=== PATIENT | male | born 1990 | race Caucasian/White ===

== ENCOUNTER 2022-12-07 21:24 | Day surgery (SDC) | payer BC ==
[2022-12-07] MEDS ORDERED: Sodium Chloride 0.9% 10 ML Syringe FLUSH PRN (21:37)
[2022-12-07] MEDS ORDERED: LORazepam 2 MG/ML SDV IVPUSH ONE (21:43)
[2022-12-07] MEDS ORDERED: Glucagon,Human Recombinant 1 MG Vial IVPUSH ONE (21:43)
[2022-12-07] MEDS ORDERED: Lidocaine 1% 4 ML ONE (22:57)
[2022-12-07] MEDS ORDERED: Ondansetron 4 MG/2 ML SDV ONE (22:57)
[2022-12-07] MEDS ORDERED: Midazolam 1 MG/ML 2 ML SDV ONE (22:58)
[2022-12-07] MEDS ORDERED: Propofol 200 MG/20 ML SDV ONE (22:58)
[2022-12-07] MEDS ORDERED: fentaNYL 100 MCG/2 ML SDV ONE (22:59)
[2022-12-07] MEDS ORDERED: fentaNYL 100 MCG/2 ML SDV IVPUSH PRN (23:17)
[2022-12-07] MEDS ORDERED: HYDROmorphone 0.5 MG/0.5 ML Syringe IVPUSH PRN (23:17)
[2022-12-07] MEDS ORDERED: Ondansetron 4 MG/2 ML SDV IVPUSH PRN (23:17)
[2022-12-07] MEDS ORDERED: Dexamethasone 4 MG/ML SDV ONE (23:37)
[2022-12-08] MEDS ORDERED: Lactated Ringers 1,000 ML IV SCH (00:10)
== END 2022-12-08 07:32 | disposition home or self-care (01) ==
LOC: JD.ED 21:24 → JD.SDS 22:53 → JD.MS 12-08 01:09 → JD.SDS 12-08 07:32
PROVIDERS: ATTEND Specialist
DX: T18.128A Food in esophagus causing other injury, initial encounter (principal)
CPT/HCPCS: 36415; 43247; 80053; 85025; 96374; 96375; 99284; J1100; J1610; J2060; J2250; J2405; J2704; J3010; J3490; J7120; 99285